=== PATIENT | female | born 1960 | race Caucasian/White ===

== ENCOUNTER 2017-05-11 08:49 | Day surgery (SDC) | payer BC ==
[~2017-05-11 08:49] MED LIST: RINGERS SOLUTION,LACTATED 1,000 ML IV PRN
[2017-05-11] MEDS ORDERED: RINGERS SOLUTION,LACTATED 1,000 ML IV PRN (10:50)
[2017-05-11] MEDS ORDERED: KETOROLAC TROMETHAMINE 30 MG/ML VIAL IV ONE (11:18)
[2017-05-11 12:39] VITALS: BP 132/66
--- NOTE | 2017-05-11 17:36 | OR ---
Operative Report - Dictated Report Narrative: OPERATIVE REPORT DATE OF OPERATION: 05/11/2017 PREOPERATIVE DIAGNOSIS: Family history of colon cancer POSTOPERATIVE DIAGNOSIS: 2 mm area of possible polypoid change at 25 cm and subtle mucosal changes in the cecum (pathology pending) OPERATION: Colonoscopy with hot biopsy forceps polypectomy at 25 cm and cecal biopsy SURGEON: Fareed Hardy MD ANESTHESIA: VIGNESH Chaudhary CRNA INDICATIONS FOR PROCEDURE: The patient is a 57-year-old female whose brother had colon cancer at age 59. The patient's last colonoscopy in 2009 was normal. She does have some alternating constipation and loose stools. FINDINGS: 2 mm area of possible polypoid change at 25 cm. Subtle mucosal changes in the cecum (pathology pending). Somewhat tortuous sigmoid colon otherwise normal exam to the cecum NARRATIVE OF PROCEDURE: The patient was identified in the holding area, and prior to the administration of anesthetic, a multidisciplinary timeout was observed. With the patient in the left lateral position and after the administration of intravenous sedation, the perineum was inspected. There was no evidence of pilonidal disease or skin breakdown. The external appearance of the anus was normal. Sphincter tone was good. The flexible fiberoptic colonoscope was inserted into the rectum which was insufflated with air. The rectal mucosa and submucosal vascular pattern appeared normal, the prep was seen to be complete. The scope was advanced through a tortuous sigmoid colon, where at 25 cm a 2 mm area of possible polypoid change was encountered. This was biopsied and then thoroughly destroyed with electrocautery. The site was seen to be complete and hemostatic. The scope was advanced up the descending colon, and around the splenic flexure where the triangular haustral architecture of the transverse colon was seen. The scope was advanced across the transverse colon, around the hepatic flexure to the cecum, where the confluence of tenia and the ileocecal valve were identified. The mucosa at this level appeared normal with exception of some very subtle patchy changes. A photograph was taken. [employer]ician biopsy was obtained. The site appeared hemostatic.. The scope was then slowly withdrawn in a circular fashion so that all aspects of colonic mucosa were inspected. The proximal colon was somewhat capacious in character and the sigmoid was redundant. The haustral architecture appeared well preserved throughout with no evidence of external compression. The mucosa and submucosal vascular pattern appeared normal, specifically there was no gross evidence to suggest colitis or inflammatory bowel disease and no AV malformations were seen. No wandy diverticulosis was demonstrated. No additional polyps were encountered. The scope was gradually withdrawn to the level of the rectum. As much insufflated air as possible was removed. The scope was withdrawn from the patient and the procedure terminated. The patient tolerated the anesthetic and procedure well without complication and was transferred back to the ambulatory surgery area awake and in stable condition. The patient remained stable throughout a period of postoperative observation. She had some initial lower abdominal discomfort, which resolved after passing gas. She was able to tolerate by mouth intake, and was up without assistance. I shared the operative findings with the patient and she was given copies of the photographs which appear in the medical record. She was discharged home with instructions not to engage in hazardous activity today, but may resume normal activity tomorrow, and advance diet as tolerated. She is to continue those medications as listed in the history and physical exam. I made arrangements to contact her with the biopsy reports and will make additional recommendations for treatment and follow-up based upon those results. Reviewed and electronically signed
== END 2017-05-11 08:50 | disposition home or self-care (01) ==
LOC: AMB 08:49
PROVIDERS: ATTEND Surgery
PROC: 0DBH8ZX Excision of Cecum, Via Natural or Artificial Opening Endoscopic, Diagnostic (ICD-10-PCS; 2017-05-11)
PROC: 0DBN8ZX Excision of Sigmoid Colon, Via Natural or Artificial Opening Endoscopic, Diagnostic (ICD-10-PCS; principal; 2017-05-11 09:30)
DX: Z12.11 Encounter for screening for malignant neoplasm of colon (principal); D12.5 Benign neoplasm of sigmoid colon; I10 Essential (primary) hypertension; E03.9 Hypothyroidism, unspecified; F41.9 Anxiety disorder, unspecified; Z68.33 Body mass index [BMI] 33.0-33.9, adult; Z80.0 Family history of malignant neoplasm of digestive organs

== ENCOUNTER 2017-08-18 07:09 | Day surgery (SDC) | payer BC ==
[~2017-08-18 07:09] MED LIST changes: +RINGER'S SOLUTION,LACTATED 1,000 ML IV PRN; -RINGERS SOLUTION,LACTATED 1,000 ML IV PRN
[2017-08-18 07:29] LABS: Hematocrit 40.5 % (37.0-47.0); Hemoglobin 13.5 gm/dL (12.5-16.0); Mean Cell Volume 90.2 fl (78-100); Mean Corpuscular Hemoglobin 30.1 pg (27-31); Mean Corpuscular Hgb Conc 33.3 g/dl (32-36); Mean Platelet Volume 10.3 fl (6.0-9.5); Neutrophil # 3.5 K/mm3 (1.3-6.0); Neutrophil % 57.7 % (42-75.0); Platelet Count 263 K/mm3 (150-450); Red Blood Count 4.49 M/mm3 (4.2-5.4); Red Cell Distribution Width 12.8 % (11.5-14.0)
[2017-08-18] MEDS ORDERED: RINGER'S SOLUTION,LACTATED 1,000 ML IV ONE (07:45)
[2017-08-18] MEDS ORDERED: IBUPROFEN 600 MG TABLET PO PRN (08:43)
--- NOTE | 2017-08-18 09:07 | OR ---
Operative Report - Dictated Report Narrative: Operative Report 08/18/17 Hysteroscopy Dilatation and Curettage Preoperative Diagnosis: Postmenopausal Bleeding, Abnormal Endometrial Ultrasound Postoperative Diagnosis: Postmenopausal Bleeding, Abnormal Endometrial Ultrasound Procedure: Hysteroscopy Dilatation and Curettage Surgeon: Anaya Camilo M.D. Anesthesia: Fernandez Chaudhary CRNA, IV sedation Findings: Uterine sound 10 cm. Endometrial polyp on the left cornual angle of the endometrium removed through hysteroscope with grapsers. Fluids: 300 ml EBL: Minimal Drains: None Complications: None Condition: Stable Pathology: Endometrial curettings and polyp Procedure: The patient was taken to the operating room with IV fluids running. She was placed in the dorsal lithotomy position after anesthesia was induced. A bivalve speculum was placed in the vagina. The anterior lip of the cervix was grasped with a single-tooth tenaculum. Uterine sound was passed into the endometrial cavity with ease. Uterine sound was 10 cm. The cervix was dilated with Gurpreet dilators. The hysteroscope was introduced into the endometrial cavity. The cavity was distended with normal saline. [place] were visualized bilaterally. There was an endometrial polyp on the endometrium in the left cornual angle. It was removed hysteroscopically with the alligator grasper under direct visulization The hysteroscope was removed. The cavity was sharply curetted without difficulty. The hysteroscope was once again introduced into the cavity. The cavity was completely curetted. The hysteroscope was removed. The single-tooth tenaculum was removed. Sites were hemostatic. The speculum was removed from the vagina. Sponge counts were correct 2. The patient tolerated the procedure well.
[2017-08-18 10:31] VITALS: BP 133/87
== END 2017-08-18 07:10 | disposition home or self-care (01) ==
LOC: AMB 07:09
PROVIDERS: ATTEND Obstetrics & Gynecology
PROC: 0UJD8ZZ Inspection of Uterus and Cervix, Via Natural or Artificial Opening Endoscopic (ICD-10-PCS; 2017-08-18)
PROC: 0UDB7ZX Extraction of Endometrium, Via Natural or Artificial Opening, Diagnostic (ICD-10-PCS; principal; 2017-08-18 08:00)
DX: N84.0 Polyp of corpus uteri (principal); N95.0 Postmenopausal bleeding; I10 Essential (primary) hypertension; E03.9 Hypothyroidism, unspecified; Z68.33 Body mass index [BMI] 33.0-33.9, adult